=== PATIENT | female | born 1975 | race Caucasian/White ===

== ENCOUNTER 2017-06-28 14:08 | Emergency (ER) | payer MEDICAID, OTHER, SELFPAY ==
[~2017-06-28] VITALS: Ht 160 cm; Wt 59.1 kg
[2017-06-28] MEDS ORDERED: FLUO40CA (14:25)
[2017-06-28] MEDS ORDERED: BUSP10TA (14:25)
[2017-06-28] MEDS ORDERED: OMEP20CA3 (14:25)
[2017-06-28] MEDS ORDERED: PRED20TA PO (16:04)
[2017-06-28] MEDS ORDERED: RANI15TA PO (16:04)
[2017-06-28] MEDS ORDERED: BENA25TA10 PO (16:04)
[2017-06-28 16:16] VITALS: BP 166/78
== END 2017-06-28 16:18 | disposition home or self-care (01) ==
LOC: M ED 14:08
DX: L23.7 Allergic contact dermatitis due to plants, except food (principal); K21.9 Gastro-esophageal reflux disease without esophagitis; Z79.899 Other long term (current) drug therapy; Z88.2 Allergy status to sulfonamides; Z88.8 Allergy status to other drugs, medicaments and biological substances

== ENCOUNTER → 2019-05-31 | Outpatient (REF) | payer OTHER ==
[~2019-05-31] MED LIST: BENA25TA10 PO; BUSP10TA; FLUO40CA; OMEP20CA4; PRED20TA PO; RANI15TA PO
[2019-05-31 18:53] LABS: HEMOGLOBIN A1c 4.7 %
[2019-05-31 19:00] LABS: FREE T4 0.85 NG/DL (0.76-1.46); RHEUMATOID FACTOR QUANT < 10.0 IU/ML (<15.0); TOTAL PROTEIN 7.7 GM/DL (6.4-8.2)
[2019-05-31 19:39] LABS: FOLATE 8.8 NG/ML; VITAMIN B12 LEVEL 289 PG/ML
[2019-06-01 13:22] LABS: ALBUMIN 4.56 GM/DL (3.29-5.55); ALBUMIN % 59.2 % (55.8-66.1); ALPHA-1-GLOBULIN % 4.8 % (2.9-4.9); ALPHA-1-GLOBULINS 0.37 GM/DL (0.17-0.41); ALPHA-2-GLOBULINS 0.88 GM/DL (0.42-0.99); ALPHA-2-GLOBULINS % 11.4 % (7.1-11.8); BETA-1-GLOBULINS 0.53 GM/DL (0.28-0.60); BETA-1-GLOBULINS % 6.9 % (4.7-7.2); BETA-2-GLOBULINS % 5.2 % (3.2-6.5); GAMMA GLOBULIN % 12.5 % (11.1-18.8); GAMMA GLOBULINS 0.96 GM/DL (0.65-1.58)
[2019-06-06 10:15] LABS: DRVV SCREEN 33.1 SEC
[2019-06-06 10:21] LABS: PTT LUPUS TYPE ANTICOAG SCREEN 0.8 (0-1.2)
[2019-06-07 08:08] LABS: ANTINUCLEAR ANTIBODIES DIRECT Negative (Negative); Lyme Disease IgG/IgM Antibodie <0.91 ISR (0.00-0.90); Lyme Disease IgM Ab Quantitati <0.80 index (0.00-0.79); VITAMIN B1 LEVEL WHOLE BLOOD 112.9 nmol/L (66.5-200.0); VITAMIN B6,PYRIDOXAL PHOSPHATE 24.9 ug/L (2.0-32.8); VITAMIN E(ALPHA TOCOPHEROL) 11.1 mg/L (7.0-25.1); VITAMIN E(GAMMA TOCOPHEROL) 2.1 mg/L (0.5-5.5)
== END ==
LOC: M LABNEURO 13:31
PROVIDERS: ATTEND Psychiatry & Neurology Neurology
DX: G62.9 Polyneuropathy, unspecified (principal); M62.838 Other muscle spasm

== ENCOUNTER → 2021-03-28 | Outpatient (CLI) | payer OTHER ==
[~2021-03-28] MED LIST changes: +OMEP1CAP73; -OMEP20CA4
--- NOTE | 2021-03-28 17:00 | REP ---
INDICATION: LACERATION WITHOUT FOREIGN BODY, LEFT ANKLE, INIT ENCNTR. COMPARISON: None. TECHNIQUE: Two views FINDINGS: There is evidence to suggest an anterior tibial cortical breach. This is difficult to evaluate on this limited two view exam. There is soft tissue swelling. The mortise is intact. IMPRESSION: Possible distal anterior tibial cortical fracture. CT is recommended for further evaluation. <Electronically signed by Renato Taylor > 03/28/21 [id number]
== END ==
LOC: M RAD 16:14
PROVIDERS: ATTEND Surgery
DX: S91.012A Laceration without foreign body, left ankle, initial encounter (principal); X58.XXXA Exposure to other specified factors, initial encounter; Y92.9 Unspecified place or not applicable; Y99.9 Unspecified external cause status

== ENCOUNTER → 2021-04-09 | Outpatient (CLI) | payer OTHER ==
--- NOTE | 2021-04-09 16:35 | REP ---
INDICATION: LT LOWER LEG LACERATION NON HEALING. COMPARISON: Prior plain film examination 03/28/2021 TECHNIQUE: 3 x [address] reconstructed both sagittal and coronal planes FINDINGS: There is a comminuted partially depressed anterior distal tibial fracture with overlying soft tissue swelling. There are additional fractures. IMPRESSION: Distal tibial fracture as described above. <Electronically signed by Renato Taylor > 04/09/21 [id number]
== END ==
LOC: M RAD 14:53
PROVIDERS: ATTEND Physician Assistant
DX: S82.392A Other fracture of lower end of left tibia, initial encounter for closed fracture (principal)

== ENCOUNTER → 2021-04-21 | Outpatient (REF) | payer OTHER ==
[2021-04-21 16:55] LABS: HEMATOCRIT 37.3 % (36.0-47.0); HEMOGLOBIN 11.5 g/dl (12.0-15.5); MEAN CORPUSCULAR HEMOGLOBIN 24.4 pg (27.0-33.0); MEAN CORPUSCULAR HGB CONC 30.8 g/dl (32.0-36.5); PLATELET COUNT, AUTOMATED 390 10^3/uL (150-450); RED BLOOD COUNT 4.72 10^6/uL (4.00-5.40); WHITE BLOOD COUNT 6.7 10^3/uL (4.0-10.0)
[2021-04-21 17:56] LABS: ERYTHROCYTE SEDIMENTATION RATE 22 mm/hr (0-20)
== END ==
LOC: M LAB REF 16:37
PROVIDERS: ATTEND Surgery
DX: S91.012A Laceration without foreign body, left ankle, initial encounter (principal); X58.XXXA Exposure to other specified factors, initial encounter; Y92.9 Unspecified place or not applicable; Y99.9 Unspecified external cause status

== ENCOUNTER → 2021-07-14 | Outpatient (CLI) | payer OTHER ==
--- NOTE | 2021-07-14 12:53 | REP ---
INDICATION: LT ANKLE FX. COMPARISON: 03/28/2021 the latest prior TECHNIQUE: Three views FINDINGS: The anterior tibial cortical irregularity suspicious for fracture has healed. There is no acute fracture. The bones do appear somewhat demineralized. The mortise remains intact. IMPRESSION: No acute osseous abnormality. Findings as described above. <Electronically signed by Renato Taylor > 07/14/21 [id number]
== END ==
LOC: M SOG 09:03
PROVIDERS: ATTEND Orthopaedic Surgery Sports Medicine
DX: S82.392D Other fracture of lower end of left tibia, subsequent encounter for closed fracture with routine healing (principal)

== ENCOUNTER → 2022-04-17 | Outpatient (CLI) | payer OTHER | LOC: M SOG 14:49 | PROVIDERS: ATTEND Orthopaedic Surgery | DX: M85.862 Other specified disorders of bone density and structure, left lower leg (principal) ==

== ENCOUNTER → 2024-12-08 | Outpatient (CLI) | payer OTHER ==
[2024-12-08 13:38] LABS: HEMATOCRIT 48.2 % (36.0-47.0); HEMOGLOBIN 16.2 g/dl (12.0-15.5); MEAN CORPUSCULAR HEMOGLOBIN 32.4 pg (27.0-33.0); MEAN CORPUSCULAR HGB CONC 33.6 g/dl (32.0-36.5); MEAN CORPUSCULAR VOLUME 96.4 fl (80.0-96.0); PLATELET COUNT, AUTOMATED 249 10^3/uL (150-450); WHITE BLOOD COUNT 7.9 10^3/uL (4.0-10.0)
[2024-12-08 14:17] LABS: THYROID STIMULATING HORMONE 2.883 uIU/ML (0.55-4.78)
[2024-12-08 14:26] LABS: ALBUMIN 3.6 G/DL (3.2-5.2); ALKALINE PHOSPHATASE 159 U/L (35-104); ALT/SGPT 43 U/L (7.0-40); AST/SGOT 129 U/L (<34); BILIRUBIN,TOTAL 0.4 MG/DL (0.3-1.2); BLOOD UREA NITROGEN < 5 MG/DL (9-23); CALCIUM LEVEL 8.9 MG/DL (8.5-10.1); CARBON DIOXIDE LEVEL 25 MMOL/L (20-31); CHLORIDE LEVEL 103 MMOL/L (98-107); CREATININE FOR GFR 0.54 MG/DL (0.55-1.30); GLOMERULAR FILTRATION RATE > 60.0 (>58); GLUCOSE, FASTING 86 MG/DL (60-100); MAGNESIUM LEVEL 1.6 MG/DL (1.8-2.4); POTASSIUM SERUM 3.7 MMOL/L (3.5-5.1); SODIUM LEVEL 139 MMOL/L (136-145); TOTAL PROTEIN 7.5 G/DL (5.7-8.2)
== END ==
LOC: M PLALAB 11:49
PROVIDERS: ATTEND Physician Assistant
DX: R00.2 Palpitations (principal); R06.02 Shortness of breath

== ENCOUNTER → 2024-12-14 | Outpatient (CLI) | payer OTHER | LOC: M EKG 13:50 | PROVIDERS: ATTEND Physician Assistant | DX: R00.2 Palpitations (principal); Z53.9 Procedure and treatment not carried out, unspecified reason ==